=== PATIENT | male | born 1960 | race Caucasian/White ===

== ENCOUNTER → 2018-02-28 | Outpatient (CLI) | payer BC ==
[~2018-02-28] MED LIST: ACET-822 PO; BACT800T5 PO; HYDR-3516 PO; IBUP1TAB7 PO; LISI-515 PO; METR-1 PO
[2018-02-28 08:57] LABS: AUTOMATED NEUTROPHIL # 5.2 TH/MM3 (1.8-7.7); BASOPHIL # 0.1 TH/MM3 (0-0.2); BASOPHIL % 1.2 % (0.0-2.0); EOSINOPHIL # 0.2 TH/MM3 (0-0.4); EOSINOPHIL % 1.7 % (0.0-4.0); HEMATOCRIT 46.8 % (39.0-51.0); HEMOGLOBIN 16.1 GM/DL (13.0-17.0); LYMPH % 39.8 % (9.0-44.0); LYMPHOCYTE # 4.1 TH/MM3 (1.0-4.8); MEAN CELL VOLUME 92.6 FL (80.0-100.0); MEAN CORPUSCULAR HEMOGLOBIN 31.8 PG (27.0-34.0); MEAN CORPUSCULAR HGB CONC 34.4 % (32.0-36.0); MEAN PLATELET VOLUME 9.4 FL (7.0-11.0); MONO % 7.4 % (0.0-8.0); MONOCYTE # 0.8 TH/MM3 (0-0.9); NEUT % 49.9 % (16.0-70.0); PLATELET COUNT 213 TH/MM3 (150-450); RED BLOOD COUNT 5.06 MIL/MM3 (4.50-5.90); RED CELL DISTRIBUTION WIDTH 13.6 % (11.6-17.2); WHITE BLOOD COUNT 10.4 TH/MM3 (4.0-11.0)
[2018-02-28 08:59] LABS: BILIRUBIN, URINE NEG (NEG); BLOOD, URINE NEG (NEG); GLUCOSE,URINE NEG (NEG); KETONE, URINE NEG (NEG); MUCUS URINE FEW /lpf (OCC); NITRITE,URINE NEG (NEG); PH, URINE 5.5 (5.0-8.5); URINE COLOR YELLOW (YELLW/STRAW); URINE LEUKOCYTE ESTERASE NEG (NEG)
--- NOTE | 2018-02-28 09:13 | RADRPT ---
EXAM DATE/TIME: 02/28/2018 08:54 [facility] COMPARISON: CHEST SINGLE AP, October 27, 2016, 5:31. INDICATIONS : Evaluate for pneumonia, pneumothorax or communicable diesease surgery 03/07/18 Sigmoid colectomy, low anterior resection MEDICAL HISTORY : Hypertension. SURGICAL HISTORY : Inguinal hernia repair. ENCOUNTER: Initial ACUITY: 1 day PAIN SCORE: 0/10 LOCATION: Bilateral chest FINDINGS: PA and lateral views of the chest demonstrate the lungs to be symmetrically aerated without evidence of mass, infiltrate or effusion. The cardiomediastinal contours are unremarkable. There are mild deg enerative changes within the thoracic spine. CONCLUSION: 1. No acute cardiopulmonary findings. Gama Benjamin MD on February 28, 2018 at 9:09 Board Certified Radiologist. This report was verified electronically.
[2018-02-28 09:44] LABS: AST (GOT) 14 U/L (15-37); BICARBONATE 29.1 MEQ/L (21.0-32.0); BLOOD UREA NITROGEN 12 MG/DL (7-18); CALCIUM 8.9 MG/DL (8.5-10.1); CHLORIDE 107 MEQ/L (98-107); GLOMERULAR FILTRATION RATE 69 ML/MIN (>89); GLUCOSE,FASTING 85 MG/DL (74-99); SODIUM (NA) 141 MEQ/L (136-145)
[2018-02-28 09:49] LABS: ALKALINE PHOSPHATASE 101 U/L (45-117); ALT (GPT) 27 U/L (12-78); TOTAL BILIRUBIN ADULT 0.3 MG/DL (0.2-1.0)
--- NOTE | 2018-03-01 10:44 | EKG ---
Date Performed: 02/28/2018 Time Performed: 08:15:45 PTAGE: 57 years EKG: Sinus rhythm MODERATE INTRAVENTRICULAR CONDUCTION DELAY MINIMAL VOLTAGE CRITERIA FOR LVH, CONSIDER NORMAL VARIANT BORDERLINE ECG PREVIOUS TRACING : 10/27/[address] segment elevation most consistent with repolariz ation change. Since the prior tracing, there has been no significant serial change. DOCTOR: Charlene Talavera Interpretating Date/Time 03/01/2018 10:43:26
== END ==
LOC: CPRE 07:54
PROVIDERS: ATTEND Colon & Rectal Surgery
DX: Z01.810 Encounter for preprocedural cardiovascular examination (principal); Z01.811 Encounter for preprocedural respiratory examination; Z01.812 Encounter for preprocedural laboratory examination; K57.32 Diverticulitis of large intestine without perforation or abscess without bleeding; R94.31 Abnormal electrocardiogram [ECG] [EKG]
CPT/HCPCS: 36415; 71046; 80053; 81001; 85025; 85610; 85730; 93005

== ENCOUNTER 2018-03-07 11:31 | Inpatient (IN) | payer BC ==
[2018-03-07] VITALS (8 sets, daily range): BP systolic 142–158; BP diastolic 71–82; PULSE 78–88; RESP 18–20; TEMP 98.1–98.7; O2SAT 95–96
[~2018-03-07] VITALS: Ht 180.3 cm; Wt 80.5 kg
[~2018-03-07 11:31] MED LIST changes: -BACT800T5 PO; -HYDR-3516 PO; -IBUP1TAB7 PO; -METR-1 PO
[2018-03-07] MEDS ORDERED: ROCURONIUM INJ 50 MG/5 ML SYRINGE IV PUSH ONE (12:00)
[2018-03-07] MEDS ORDERED: DEXT 5%-NACL 0.9% 1000 ML INJ 1,000 ML IV SCH (12:00)
[2018-03-07] MEDS ORDERED: DEXAMETHASONE SOD PHOS 4 MG/ML VIAL IV ONE (12:00)
[2018-03-07] MEDS ORDERED: ALVIMOPAN 12 MG CAPSULE - On Call PO SCH (12:00)
[2018-03-07] MEDS ORDERED: ONDANSETRON HCL 4 MG/2 ML VIAL IV ONE (12:00)
[2018-03-07] MEDS ORDERED: PROPOFOL 200 MG/20 ML AMP IV ONE (12:00)
[2018-03-07] MEDS ORDERED: ceFAZolin 1,000 MG/NS 100 ML IV SCH ×2 (12:00)
[2018-03-07] MEDS ORDERED: SODIUM CHLORID 0.9% 500 ML IV PRN (12:00)
[2018-03-07] MEDS ORDERED: NORMOSOL R INJ 1,000 ML IV ONE (12:00)
[2018-03-07] MEDS ORDERED: LACTATED RINGER'S 1000 ML IV PRN (12:00)
[2018-03-07] MEDS ORDERED: PHENYLEPH/NS 1000 MCG/10 ML SYR IV ONE (12:00)
[2018-03-07] MEDS ORDERED: KETOROLAC TROMETHAMINE 30 MG/ML (IVP) VIAL IV PUSH ONE (12:00)
[2018-03-07] MEDS ORDERED: POVIDONE IODINE 5% (ANTISEPSIS KIT) 4 APPLICATIONS EACH NARE PRN (12:00)
[2018-03-07] MEDS ORDERED: METRONIDAZOLE 500 MG/100 ML ISONTONIC SOLN IV SCH (12:00)
[2018-03-07] MEDS ORDERED: METOPROLOL TARTRATE 25 MG TAB PO PRN (12:00)
[2018-03-07] MEDS ORDERED: LIDOCAINE HCL 1% PF 5 ML SYRINGE OTHER ONE (12:00)
[2018-03-07] MEDS ORDERED: INSULIN HUMAN REGULAR 1,000 UNITS/10 ML VIAL SQ PRN (12:00)
[2018-03-07] MEDS ORDERED: CHLORHEXIDINE GLUCONATE 2 % 1 PACK (2 CLOTHS) TOPICAL PRN (12:00)
[2018-03-07] MEDS ORDERED: BUPIVACAINE HCL PF 0.5% 30 ML VIAL ONE (13:07)
--- NOTE | 2018-03-07 14:10 | PD.OP ---
Operative Report Date of Surgery: Mar 07, 2018 Preoperative Diagnosis: Sigmoid diverticulitis Postoperative Diagnosis: Same Procedure: Cystoscopy with bilateral ureteral catheter insertion Anesthesia: SRIDHAR Surgeon: Yasmany Small Case Assistant(s): None Resident Surgeon: None Operation and Findings: 57-year-old male with sigmoid diverticulitis. Elected to undergo colon resection by & Dr. Jasso. Request for made for bilateral ureteral catheter insertion. The patient was brought to the operating room and placed in the dorsal lithotomy position. He was prepped and draped in usual sterile fashion and preprocedure antibiotics were administered. General endotracheal tube anesthesia was also administered. 22 Filipino cystoscope was inserted the bladder miranda cystoscopy did not reveal any abnormalities. The left ureteral orifice was identified for majority catheter was inserted in the left ureteral orifice without difficulty. This was repeated on the right side. A 0.35 sensor wire was passed up the right side in order to pass the catheter over the wire. A 60 Filipino Gannon catheter was inserted and the catheters were then secured to the Gannon. The patient tolerated the procedure well. Yasmany Small DO Mar 07, 2018 14:10
[2018-03-07] MEDS ORDERED: SODIUM CHLORIDE 0.9% FLUSH 10 ML FLUSH IV FLUSH PRN (15:30)
[2018-03-07] MEDS ORDERED: ONDANSETRON HCL 4 MG/2 ML VIAL IV PUSH PRN (15:30)
[2018-03-07] MEDS ORDERED: BENZOCAINE 6 MG/MENTHOL 10 MG LOZENGE BUCCAL PRN (15:30)
[2018-03-07] MEDS ORDERED: NALOXONE HCL 0.4 MG/ML AMP IV PUSH PRN (15:30)
[2018-03-07] MEDS ORDERED: ZOLPIDEM TARTRATE 5 MG TAB PO PRN (15:30)
[2018-03-07] MEDS ORDERED: ACETAMINOPHEN/HYDROcodone 325 MG/5 MG TAB PO PRN (15:30)
[2018-03-07] MEDS ORDERED: POTASSIUM CHLOR 20 MEQ PREMIX 100 ML IV PRN (15:30)
[2018-03-07] MEDS ORDERED: POTASSIUM CHLOR 40 MEQ PREMIX 100 ML IV PRN (15:30)
[2018-03-07] MEDS ORDERED: KETOROLAC TROMETHAMINE 30 MG/ML (IVP) VIAL IVP PRN (15:30)
[2018-03-07] MEDS ORDERED: Post-op Orders (for Pharmacy) XX ONE (15:34)
[2018-03-07] MEDS ORDERED: *morphine SULFATE 4 MG/ML PERIprocedure ONLY ONE ×3 (15:35→16:11)
[2018-03-07] MEDS ORDERED: *MEPERIDINE 25 MG INJ VIAL PERIprocedural Use ONLY ONE (15:35)
[2018-03-07] MEDS ORDERED: DO NOT ADM ANY ANTICOAGULANT DRUGS PRN (16:00)
[2018-03-07 16:26] LABS: AUTOMATED NEUTROPHIL # 22.2 TH/MM3 (1.8-7.7); BASOPHIL # 0.1 TH/MM3 (0-0.2); BASOPHIL % 0.6 % (0.0-2.0); EOSINOPHIL % 0.2 % (0.0-4.0); HEMATOCRIT 49.3 % (39.0-51.0); HEMOGLOBIN 16.7 GM/DL (13.0-17.0); LYMPH % 9.7 % (9.0-44.0); LYMPHOCYTE # 2.5 TH/MM3 (1.0-4.8); MEAN CELL VOLUME 91.4 FL (80.0-100.0); MEAN CORPUSCULAR HGB CONC 33.9 % (32.0-36.0); MEAN PLATELET VOLUME 9.5 FL (7.0-11.0); MONO % 2.3 % (0.0-8.0); MONOCYTE # 0.6 TH/MM3 (0-0.9); NEUT % 87.2 % (16.0-70.0); PLATELET COUNT 246 TH/MM3 (150-450); RED BLOOD COUNT 5.39 MIL/MM3 (4.50-5.90); WHITE BLOOD COUNT 25.4 TH/MM3 (4.0-11.0)
[2018-03-07] MEDS: D5-LR + KCL 20 MEQ INJ 1,000 ML IV SCH ×2 (16:34→20:35)
--- NOTE | 2018-03-07 16:41 | MP ---
cc: Ray Palmer MD Daryl Luevano Ricardo DATE OF OPERATION: 03/07/2018 DATE OF PROCEDURE: 03/07/2018 PREOPERATIVE DIAGNOSIS: Diverticulitis. POSTOPERATIVE DIAGNOSIS: Diverticulitis. PROCEDURE PERFORMED: Sigmoid colectomy, low anterior resection. ANESTHESIA: General endotracheal. SURGEON: Ray Palmer MD HITTING COACH: John Monterroso MD ESTIMATED BLOOD LOSS: 100 mL. OPERATING TIME: 1 hour and 10 minutes. OPERATIVE FINDINGS: This patient has had multiple attacks of diverticulitis. He had a sharply angulated sigmoid colon that was stuck in the pelvis posterior to the bladder. At surgery, exploration of the abdominal cavity revealed a mild amount of clear ascites in the abdominal cavity, which was aspirated. He also had a normal liver on palpation as well as a normal gallbladder, stomach, colon, and the small bowel. The sigmoid colon was stuck and inflamed for a short segment posterior to the bladder down in the pelvis. This was easily freed up. There did not appear to be a bladder fistula. Dr. Yasmany Small placed bilateral ureteral catheters for facilitation of identification of the ureters. The right ureteral catheter was removed at the end of the surgery. At surgery, a sigmoid colectomy was done with a colorectal anastomosis using the Ethicon 29 EEA stapling instrument. The splenic flexure was mobilized. The omentum was placed down in the pelvis at termination of the procedure. OPERATIVE TECHNIQUE IN DETAIL: The patient was placed on the table in the supine position. After adequate general endotracheal anesthesia, the legs were placed in the perineal lithotomy position and the abdomen and perineum were prepped and draped in the usual manner. Transverse infraumbilical skin incision was made, carried down through subcutaneous tissue and the rectus muscles and the peritoneal cavity was entered with the above-mentioned findings. Attention was turned to the sigmoid colon; it was mobilized along its peritoneal reflection as was the descending colon, right up to and including the splenic flexure. Transverse colon was partially mobilized and the omentum was partially mobilized from the distal transverse colon. Next, the superior hemorrhoidal vessels were doubly clamped, cut and doubly ligated along with the inferior mesenteric vein and the retrorectal space was entered and the lateral pelvic peritoneum was incised bilaterally. The lateral stalks were mobilized with electrocautery and the retrorectal space was mobilized with electrocautery as well down toward the pelvic floor. Once this was done, to the anterior cul-de-sac just above this area the mesorectum was clamped, cut, and ligated and the rectum was cleared in its upper portion of the rectum. Once this was done, a pursestring stapling device was placed in the rectum and the rectum was divided. A place was chosen for division of the sigmoid colon and the remainder of the mesentery was clamped, cut, and ligated. The proximal pursestring was placed with a 2-0 Prolene suture in a simple running manner and then the anvil of the 29 Ethicon EEA was placed in the proximal bowel and the pursestring was tied. Once this was achieved, Dr. Monterroso went below and placed the EEA instrument transanally, then the trocar was advanced and the distal pursestring was tied and then the instrument was connected, closed and fired, creating the circular anastomosis. Next, Dr. Monterroso did a proctosigmoidoscopy examination insufflating air into the rectum and sigmoid colon with saline solution in the pelvis and no air leaks were identified. The pelvis was irrigated thoroughly with 2-3 liters of saline solution and aspirated dry, and hemostasis was excellent. There was no tension on the anastomosis and the blood supply was excellent. A flat #10 Constantine drain was placed in the retrorectal space to collect any postoperative fluid. Next, the bowels were replaced in the abdominal cavity in an wet pour supervisor manner after hemostasis was obtained with electrocautery and a ligature. The transverse colon was brought over the small bowel and then the omentum was brought down over that and placed in the pelvis as an omental flap. Sponge, needle and instrument counts were reported as correct and then the abdominal cavity was closed in layers using a double-stranded #1 PDS to the posterior rectus sheath and then the muscle layer was irrigated thoroughly with a liter of saline solution and the anterior rectus sheath was closed with a double-stranded #1 PDS as well. The subcutaneous tissue was irrigated thoroughly with a liter of saline solution and then dried. The skin was closed with running 3-0 Vicryl subcuticular suture and a dressing was applied. Sponge, needle and instrument counts were reported as correct. The estimated blood loss was 100 mL. The patient tolerated the procedure well and left the operating room in good condition. Operating time was 1 hour and 10 minutes. MD MANASA Rodriguez , 03:35 PM , 04:41 PM MTDBernardo
[2018-03-07] MEDS: MORPHINE SULFATE 30 MG/30 ML PCA IV SCH (16:51)
[2018-03-07 16:57] LABS: BICARBONATE 21.3 MEQ/L (21.0-32.0); CALCIUM 8.3 MG/DL (8.5-10.1); CREATININE 1.9 MG/DL (0.60-1.30)
[2018-03-07] MEDS ORDERED: LABETALOL HCL 100 MG/20 ML VIAL ONE (17:09)
[2018-03-07] MEDS ORDERED: HYDROmorphone HCL PF 0.5 MG/0.5 ML SYRINGE ONE (17:32)
[2018-03-07] MEDS: METOCLOPRAMIDE HCL 10 MG/2 ML VIAL IVS SCH ×2 (17:47→23:09)
[2018-03-07] MEDS: ceFAZolin 2 GM PREMIX 50 ML IV SCH (20:22)
[2018-03-07] MEDS: FUROSEMIDE 20 MG/2 ML VIAL IV PUSH SCH (20:23)
[2018-03-07] MEDS: SODIUM CHLORIDE 0.9% FLUSH 10 ML FLUSH IV FLUSH SCH (20:23)
[2018-03-07] MEDS: PCA - TOTAL MG MORPHINE DELIVERED PER SHIFT SCH ×2 (22:00→22:30)
[2018-03-07] MEDS: metroNIDAZOLE 500 MG INJ 100 ML IV SCH (23:09)
[2018-03-08] VITALS (12 sets, daily range): BP systolic 114–176; BP diastolic 61–89; PULSE 69–98; RESP 16–21; TEMP 98.3–99.4; O2SAT 92–95
[2018-03-08] MEDS: ceFAZolin 2 GM PREMIX 50 ML IV SCH ×2 (05:13→12:22)
[2018-03-08] MEDS: METOCLOPRAMIDE HCL 10 MG/2 ML VIAL IVS SCH ×4 (05:14→23:13)
[2018-03-08 05:27] LABS: AUTOMATED NEUTROPHIL # 17.4 TH/MM3 (1.8-7.7); BASOPHIL % 0.1 % (0.0-2.0); HEMATOCRIT 46.8 % (39.0-51.0); HEMOGLOBIN 15.7 GM/DL (13.0-17.0); LYMPH % 6.2 % (9.0-44.0); LYMPHOCYTE # 1.3 TH/MM3 (1.0-4.8); MEAN CELL VOLUME 92.7 FL (80.0-100.0); MEAN CORPUSCULAR HEMOGLOBIN 31.1 PG (27.0-34.0); MEAN CORPUSCULAR HGB CONC 33.5 % (32.0-36.0); MEAN PLATELET VOLUME 9.5 FL (7.0-11.0); MONO % 9.2 % (0.0-8.0); MONOCYTE # 1.9 TH/MM3 (0-0.9); NEUT % 84.5 % (16.0-70.0); PLATELET COUNT 204 TH/MM3 (150-450); RED BLOOD COUNT 5.05 MIL/MM3 (4.50-5.90); RED CELL DISTRIBUTION WIDTH 13.9 % (11.6-17.2); WHITE BLOOD COUNT 20.6 TH/MM3 (4.0-11.0)
[2018-03-08] MEDS: metroNIDAZOLE 500 MG INJ 100 ML IV SCH ×2 (05:59→13:10)
[2018-03-08] MEDS: PCA - TOTAL MG MORPHINE DELIVERED PER SHIFT SCH ×3 (06:00→22:10)
[2018-03-08 06:11] LABS: BICARBONATE 27.5 MEQ/L (21.0-32.0); CALCIUM 8.2 MG/DL (8.5-10.1); CREATININE 1.35 MG/DL (0.60-1.30)
[2018-03-08] MEDS: SODIUM CHLORIDE 0.9% FLUSH 10 ML FLUSH IV FLUSH SCH ×2 (08:53→21:00)
[2018-03-08] MEDS: FUROSEMIDE 20 MG/2 ML VIAL IV PUSH SCH ×2 (08:53→21:01)
[2018-03-08] MEDS: PANTOPRAZOLE SODIUM 40 MG VIAL IVP SCH (08:54)
[2018-03-08] MEDS: ALVIMOPAN 12 MG CAPSULE PO SCH ×2 (08:54→21:00)
[2018-03-08] MEDS: LISINOPRIL 20 MG TAB PO SCH (08:54)
[2018-03-08] MEDS ORDERED: ALVIMOPAN 12 MG CAPSULE - Post-op dosing PO SCH (09:00)
[2018-03-08] MEDS: D5-LR + KCL 20 MEQ INJ 1,000 ML IV SCH ×2 (11:20→16:43)
[2018-03-08] MEDS: HEPARIN SODIUM - SQ 10,000 UNITS/ML VIAL SQ SCH ×2 (15:57→23:13)
[2018-03-08] MEDS: MORPHINE SULFATE 30 MG/30 ML PCA IV SCH (17:26)
[2018-03-08] MEDS: ENALAPRILAT 1.25 MG/ML VIAL IV PUSH PRN (19:21)
[2018-03-08] MEDS: DEXTROSE 5%-LACTATED RING INJ 1,000 ML IV SCH (21:01)
--- NOTE | 2018-03-08 22:49 | HHI.PR ---
Subjective Remarks No N or V. No BMs Objective Vital Signs Date Time Temp Pulse Resp B/P (MAP) Pulse Ox O2 Delivery O2 Flow Rate FiO2 03/08/18 17:32 16 03/08/18 17:26 16 03/08/18 15:00 99.4 77 16 155/77 (103) 94 03/08/18 13:11 16 03/08/18 11:47 99.0 79 16 114/61 (78) 93 03/08/18 08:00 70 03/08/18 08:00 98.3 83 16 133/74 (93) 93 03/08/18 06:03 70 03/08/18 06:00 19 03/08/18 05:04 75 03/08/18 04:00 69 03/08/18 03:52 71 03/08/18 03:52 98.4 82 20 152/76 (101) 95 03/08/18 02:00 75 03/08/18 01:03 84 03/08/18 00:28 88 03/07/18 23:00 88 03/07/18 23:00 98.2 84 19 143/72 (95) 96 I/O 03/07/18 03/07/18 03/07/18 03/08/18 03/08/18 03/08/18 07:00 15:00 23:00 07:00 15:00 23:00 Intake Total 4250 ml 490 ml 1740 ml Output Total 445 ml 1560 ml 2050 ml Balance 3805 ml -1070 ml -310 ml Intake Oral 240 ml 240 ml IV Total 4250 ml 250 ml 1500 ml Output Urine Total 275 ml 1450 ml 1950 ml Drainage Total 70 ml 110 ml 100 ml Estimated Blood Loss 100 ml # Bowel Movements 0 Result Diagram: 03/08/182 03/08/18421 Objective Remarks VS-S Abd: Soft,flat I&Os and Labs:OK Assessment and Plan Assessment and Plan Stable POD#1. Transfer to floor Ray Palmer MD Mar 08, 2018 22:48
[2018-03-09] VITALS (8 sets, daily range): BP systolic 125–174; BP diastolic 73–90; PULSE 72–93; RESP 16–22; TEMP 97.7–98.7; O2SAT 94–96
[2018-03-09 04:32] LABS: BASOPHIL # 0.1 TH/MM3 (0-0.2); BASOPHIL % 0.6 % (0.0-2.0); EOSINOPHIL % 0.1 % (0.0-4.0); HEMATOCRIT 42.2 % (39.0-51.0); HEMOGLOBIN 14.3 GM/DL (13.0-17.0); LYMPH % 10.8 % (9.0-44.0); LYMPHOCYTE # 1.9 TH/MM3 (1.0-4.8); MEAN CELL VOLUME 91.2 FL (80.0-100.0); MEAN CORPUSCULAR HGB CONC 33.9 % (32.0-36.0); MEAN PLATELET VOLUME 9.6 FL (7.0-11.0); MONO % 8.6 % (0.0-8.0); MONOCYTE # 1.5 TH/MM3 (0-0.9); NEUT % 79.9 % (16.0-70.0); PLATELET COUNT 182 TH/MM3 (150-450); RED BLOOD COUNT 4.63 MIL/MM3 (4.50-5.90); RED CELL DISTRIBUTION WIDTH 13.8 % (11.6-17.2); WHITE BLOOD COUNT 17.5 TH/MM3 (4.0-11.0)
[2018-03-09 04:55] LABS: BICARBONATE 29.7 MEQ/L (21.0-32.0); CALCIUM 8.6 MG/DL (8.5-10.1); CREATININE 1.03 MG/DL (0.60-1.30)
[2018-03-09] MEDS: METOCLOPRAMIDE HCL 10 MG/2 ML VIAL IVS SCH ×4 (05:42→23:44)
[2018-03-09] MEDS: PCA - TOTAL MG MORPHINE DELIVERED PER SHIFT SCH ×3 (06:00→22:00)
[2018-03-09] MEDS: DEXTROSE 5%-LACTATED RING INJ 1,000 ML IV SCH ×2 (07:47→17:33)
[2018-03-09] MEDS: HEPARIN SODIUM - SQ 10,000 UNITS/ML VIAL SQ SCH (07:48)
[2018-03-09] MEDS: ACETAMINOPHEN/HYDROcodone 325 MG/5 MG TAB PO PRN ×2 (07:48→19:46)
[2018-03-09] MEDS: ENALAPRILAT 1.25 MG/ML VIAL IV PUSH PRN (07:48)
[2018-03-09] MEDS: LISINOPRIL 20 MG TAB PO SCH (09:00)
[2018-03-09] MEDS: FUROSEMIDE 20 MG/2 ML VIAL IV PUSH SCH ×2 (09:07→19:45)
[2018-03-09] MEDS: ALVIMOPAN 12 MG CAPSULE PO SCH ×2 (09:07→23:44)
[2018-03-09] MEDS: SODIUM CHLORIDE 0.9% FLUSH 10 ML FLUSH IV FLUSH SCH ×2 (09:08→23:45)
[2018-03-09] MEDS: PANTOPRAZOLE SODIUM 40 MG VIAL IVP SCH (09:08)
--- NOTE | 2018-03-09 12:38 | HHI.PR ---
Subjective Remarks No N or V. Small BMs. Objective Vital Signs Date Time Temp Pulse Resp B/P (MAP) Pulse Ox O2 Delivery O2 Flow Rate FiO2 03/09/18 11:00 98.1 93 17 144/80 (101) 95 03/09/18 09:08 19 03/09/18 07:00 98.0 77 19 174/88 (116) 95 03/09/18 06:00 19 03/09/18 03:10 98.7 72 20 162/88 (112) 94 03/08/18 23:15 98.4 86 20 158/84 (108) 92 03/08/18 22:10 20 03/08/18 19:10 98.6 98 21 176/89 (118) 93 03/08/18 17:32 16 03/08/18 17:26 16 03/08/18 15:00 99.4 77 16 155/77 (103) 94 03/08/18 13:11 16 I/O 03/08/18 03/08/18 03/08/18 03/09/18 03/09/18 03/09/18 07:00 15:00 23:00 07:00 15:00 23:00 Intake Total 490 ml 1740 ml 240 ml Output Total 1560 ml 2050 ml 2105 ml 750 ml Balance -1070 ml -310 ml -1865 ml -750 ml Intake Oral 240 ml 240 ml 240 ml IV Total 250 ml 1500 ml Output Urine Total 1450 ml 1950 ml 2050 ml 700 ml Drainage Total 110 ml 100 ml 55 ml 50 ml # Bowel Movements 0 0 Result Diagram: 03/09/18 0304 03/09/18 0304 Objective Remarks VS-S Abd: Soft,flat,dressing removed. Bleeding around drain site I&Os and Labs:OK Assessment and Plan Assessment and Plan Stable POD#2 Transfer to floor. D/C SQ Heparin.Redress drain Ray Palmer MD Mar 09, 2018 12:38
--- NOTE | 2018-03-09 16:52 | EKG ---
Date Performed: 03/08/2018 Time Performed: 17:43:32 PTAGE: 57 years EKG: Sinus rhythm Poor R wave progression - probable normal variant Since the previous tracing, no significant change noted Borderline ECG PREVIOUS TRACING : 02/28/2018 08.15 DOCTOR: Nuris Miranda Interpretating Date/Time 03/09/2018 16:50:43
[2018-03-10 04:50] VITALS: BP 141/79; PULSE 87; RESP 17; TEMP 98.1; O2SAT 94
[2018-03-10] MEDS: PCA - TOTAL MG MORPHINE DELIVERED PER SHIFT SCH ×3 (06:00→20:28)
[2018-03-10] MEDS: DEXTROSE 5%-LACTATED RING INJ 1,000 ML IV SCH (06:53)
[2018-03-10] MEDS: METOCLOPRAMIDE HCL 10 MG/2 ML VIAL IVS SCH ×3 (07:21→17:23)
[2018-03-10 08:00] VITALS: BP 137/71; PULSE 84; RESP 18; TEMP 98.2; O2SAT 94
[2018-03-10] MEDS: FUROSEMIDE 20 MG/2 ML VIAL IV PUSH SCH (09:19)
[2018-03-10] MEDS: ALVIMOPAN 12 MG CAPSULE PO SCH ×2 (09:19→20:28)
[2018-03-10] MEDS: LISINOPRIL 20 MG TAB PO SCH (09:19)
[2018-03-10] MEDS: PANTOPRAZOLE SODIUM 40 MG VIAL IVP SCH (09:19)
[2018-03-10] MEDS: SODIUM CHLORIDE 0.9% FLUSH 10 ML FLUSH IV FLUSH SCH ×2 (09:20→20:29)
--- NOTE | 2018-03-10 10:29 | HHI.PR ---
Subjective Remarks No N or V. Small loose BMs Objective Vital Signs Date Time Temp Pulse Resp B/P (MAP) Pulse Ox O2 Delivery O2 Flow Rate FiO2 03/10/18 08:00 98.2 84 18 137/71 (93) 94 03/10/18 04:50 98.1 87 17 141/79 (99) 94 03/09/18 23:45 98.3 92 17 125/73 (90) 95 03/09/18 20:00 98.2 92 16 167/85 (112) 94 03/09/18 14:00 16 03/09/18 13:30 84 16 146/84 (104) 96 03/09/18 12:00 97.7 89 16 153/90 (111) 96 03/09/18 11:00 98.1 93 17 144/80 (101) 95 I/O 03/09/18 03/09/18 03/09/18 03/10/18 03/10/18 03/10/18 07:00 15:00 23:00 07:00 15:00 23:00 Intake Total 240 ml 840 ml 720 ml Output Total 2105 ml 950 ml 250 ml 110 ml 60 ml Balance -1865 ml -950 ml 590 ml 610 ml -60 ml Intake Oral 240 ml 840 ml 720 ml Output Urine Total 2050 ml 900 ml 250 ml Drainage Total 55 ml 50 ml 110 ml 60 ml # Voids 1 1 3 # Bowel Movements 0 0 Result Diagram: 03/09/18 0304 03/09/18 0304 Objective Remarks VS-S Abd: Soft,flat,dressing removed. I&Os and Labs:OK Assessment and Plan Assessment and Plan Stable POD#3 Transfer to floor. Redress drain Ray Palmer MD Mar 10, 2018 10:29
[2018-03-10 12:00] VITALS: BP 129/80; PULSE 97; RESP 18; TEMP 98.1; O2SAT 97
[2018-03-10 16:00] VITALS: BP 127/71; PULSE 94; RESP 18; TEMP 99; O2SAT 98
[2018-03-10] MEDS: ACETAMINOPHEN/HYDROcodone 325 MG/5 MG TAB PO PRN (20:28)
[2018-03-10 20:45] VITALS: BP 107/69; PULSE 79; RESP 16; TEMP 97.7; O2SAT 97
[2018-03-10 23:15] VITALS: BP 124/68; PULSE 94; RESP 17; TEMP 97.8; O2SAT 97
[2018-03-11] MEDS: METOCLOPRAMIDE HCL 10 MG/2 ML VIAL IVS SCH ×2 (00:39→06:00)
[2018-03-11] MEDS: DEXTROSE 5%-LACTATED RING INJ 1,000 ML IV SCH (01:05)
[2018-03-11 04:00] VITALS: BP 128/62; PULSE 92; RESP 17; TEMP 97.6; O2SAT 96
[2018-03-11] MEDS: PCA - TOTAL MG MORPHINE DELIVERED PER SHIFT SCH (04:45)
[2018-03-11 08:00] VITALS: BP 114/61; PULSE 86; RESP 17; TEMP 98.6; O2SAT 94
[2018-03-11] MEDS: LISINOPRIL 20 MG TAB PO SCH (08:47)
[2018-03-11] MEDS: ALVIMOPAN 12 MG CAPSULE PO SCH (08:47)
[2018-03-11] MEDS: SODIUM CHLORIDE 0.9% FLUSH 10 ML FLUSH IV FLUSH SCH (08:56)
[2018-03-11] MEDS ORDERED: PANTOPRAZOLE SOD 40 MG DELAYED RELEASE TAB PO SCH (09:00)
--- NOTE | 2018-03-11 09:56 | HHI.DCPOC ---
Discharge Care Plan Diagnosis: (1) Diverticulitis large intestine (2) S/P colon resection Your Health Problems Are: Incision/Drains Appetite Changes Irregular Bowel Function Exercise Tolerance Goals to Promote Your Health * To prevent worsening of your condition and complications * To maintain your health at the optimal level Directions to Meet Your Goals Take your medications as prescribed Follow your dietary instruction Follow activity as directed Keep your appointments as scheduled Take your immunizations and boosters as scheduled If your symptoms worsen call your PCP, if no PCP go to Urgent Care Center or Emergency Room Smoking is Dangerous to Your Health. Avoid second hand smoke Call the 24-hour hour crisis hotline for domestic abuse at Ray Palmer MD Mar 11, 2018 09:56
[2018-03-11] MEDS ORDERED: HYDR-3516 PO (10:56)
[2018-03-11 11:24] LABS: BACTERIA, URINE OCC /hpf; BILIRUBIN, URINE NEG (NEG); BLOOD, URINE LARGE (NEG); GLUCOSE,URINE NEG (NEG); KETONE, URINE NEG (NEG); NITRITE,URINE NEG (NEG); PH, URINE 5.5 (5.0-8.5); URINE COLOR YELLOW (YELLW/STRAW); URINE LEUKOCYTE ESTERASE MOD (NEG)
== END 2018-03-11 11:30 | disposition home or self-care (01) | DRG 331 ==
LOC: HSDI 11:31 → EDSTATUS 13:30 → HCPC 17:37 → N06B 03-09 13:25
PROVIDERS: ADMIT Colon & Rectal Surgery; ATTEND Colon & Rectal Surgery
PROC: 0DTN0ZZ Resection of Sigmoid Colon, Open Approach (ICD-10-PCS; principal; 2018-03-07 13:22)
PROC: 0T9880Z Drainage of Bilateral Ureters with Drainage Device, Via Natural or Artificial Opening Endoscopic (ICD-10-PCS; 2018-03-07 13:22)
DX: K57.32 Diverticulitis of large intestine without perforation or abscess without bleeding (principal); I10 Essential (primary) hypertension; F17.210 Nicotine dependence, cigarettes, uncomplicated
CPT/HCPCS: 80048; 81001; 85025; 86850; 86900; 86901; 87086; 88307; 93005; 94150; C1769; C9113; J0690; J1100; J1170; J1644; J1885; J1940; J2175; J2270; J2370; J2405; J2765; J3480; J7120; J7121

== ENCOUNTER 2018-03-22 10:11 | Emergency (ER) | payer BC ==
[~2018-03-22] VITALS: Ht 180.3 cm; Wt 76.0 kg
[~2018-03-22 10:11] MED LIST changes: +HYDR-3516 PO
[2018-03-22 10:20] VITALS: BP 134/64; PULSE 77; RESP 18; TEMP 98.5; O2SAT 98
[2018-03-22] MEDS ORDERED: SODIUM CHLORIDE 0.9% FLUSH 10 ML FLUSH IVF PRN (11:30)
[2018-03-22] MEDS ORDERED: ONDANSETRON HCL 4 MG/2 ML VIAL IVP ONE (11:30)
[2018-03-22] MEDS ORDERED: SODIUM CHLORID 0.9% 500 ML INJ 500 ML IV ONE (11:30)
[2018-03-22] MEDS ORDERED: MECLIZINE HCL 25 MG TAB PO ONE (11:30)
--- NOTE | 2018-03-22 11:35 | PD ---
HPI Chief Complaint: Dizziness Time Seen by Provider: 11:10 Travel History International Travel<30 days: No Contact w/Intl Traveler<30days: No Traveled to known affect area: No History of Present Illness HPI Patient is a 57 year old male who comes in complaining of dizziness. He says it started today and seems to get worse with any movement of his head. He describes it as a "fuzziness," He denies any headache or nausea. He says he has some blurriness of his vision when the episodes occur. He had a colon resection performed [address] Palmer. He denies any increased abdominal pain. He says he has been eating and drinking well, though he did not eat this morning. He says he is moving his bowels. He denies fever or chills. He says he has had issues with his sinuses over the past month, but says he has never had this feeling. He says he felt like he would pass out, that is why he came in. He never had any chest pain or shortness of breath. Severity is mild to moderate. PFSH Past Medical History Asthma: No Blood Disorders: No Heart Rhythm Problems: No Cancer: Yes (Melanoma left ear) Cardiovascular Problems: Yes (HTN) Chest Pain: No Congestive Heart Failure: No COPD: No Diabetes: No Diminished Hearing: No Diverticulitis: Yes Endocrine: No Gastrointestinal Disorders: Yes (ACID REFLEX) GERD: Yes Genitourinary: No Hepatitis: No Hypertension: Yes Immune Disorder: No Musculoskeletal: Yes (Chronic pain syndrome, neck/back issues ) Neurologic: No (2 BULGING DISKS IN NECK, LEFT HAND NUMBNESS OCCASIONALLY) Psychiatric: No Reproductive: No Respiratory: No Sleep Apnea: No Thyroid Disease: No Tetanus Vaccination: < 5 Years Influenza Vaccination: No ?: Not Past Surgical History Abdominal Surgery: Yes (Lt. ing. hernia repair, colectomy ) Joint Replacement: No Tonsillectomy: Yes Other Surgery: Yes (MULTIPLE SURGERIES TO SINUSES AT AGE 7) Social History Alcohol Use: No (States quit) Tobacco Use: No (States quit) Substance Use: No Allergies-Medications (Allergen,Severity, Reaction): Coded Allergies: levofloxacin (Verified Allergy, Unknown, EXTREME SWELLING OF ALL EXTREMITIES, HIVES, 03/22/18) Reported Meds & Prescriptions Reported Meds & Active Scripts Active Reported Lisinopril 20 Mg Tab 20 Mg PO DAILY Review of Systems Except as stated in HPI: all other systems reviewed are Neg General / Constitutional: No: Fever, Chills Eyes: Positive: Blurred Vision HENT: Positive: Vertigo, Lightheadedness Cardiovascular: No: Chest Pain or Discomfort Respiratory: No: Shortness of Breath Gastrointestinal: No: Nausea, Vomiting Musculoskeletal: No: Myalgias Skin: No Rash, No Change in Pigmentation Neurologic: Positive: Dizziness, No: Weakness Physical Exam Narrative GENERAL: Awake and alert, in no acute distress. SKIN: Focused skin assessment warm/dry. HEAD: Atraumatic. Normocephalic. EYES: Pupils equal and round. No scleral icterus. EOMI. ENT: Mucous membranes pink and moist. NECK: Trachea midline. No JVD. CARDIOVASCULAR: Regular rate and rhythm. No murmur appreciated. RESPIRATORY: No accessory muscle use. Clear to auscultation. Breath sounds equal bilaterally. GASTROINTESTINAL: Abdomen soft, non-tender, nondistended. MUSCULOSKELETAL: No obvious deformities. No clubbing. No cyanosis. No edema. NEUROLOGICAL: Awake and alert. No obvious cranial nerve deficits. Motor grossly within normal limits. Normal speech. Normal cerebellar function testing. PSYCHIATRIC: Appropriate mood and affect; insight and judgment normal. Data Data Last Documented VS Vital Signs Date Time Temp Pulse Resp B/P (MAP) Pulse Ox O2 Delivery O2 Flow Rate FiO2 03/22/18 12:15 65 14 114/58 (76) 97 Room Air 03/22/18 10:20 98.5 Orders Orders Electrocardiogram (03/22/18 11:19) Complete Blood Count With Diff (03/22/18 11:19) Comprehensive Metabolic Panel (03/22/18 11:19) Troponin I (03/22/18 11:19) Act Partial Throm Time (Ptt) (03/22/18 11:19) Prothrombin Time / Inr (Pt) (03/22/18 11:19) Urinalysis - C+S If Indicated (03/22/18 11:19) Chest, Single Ap (03/22/18 11:19) Ct Brain W/O Iv Contrast(Rout) (03/22/18 11:19) Ecg Monitoring (03/22/18 11:19) Iv Access Insert/Monitor (03/22/18 11:19) Oximetry (03/22/18 11:19) Meclizine (Antivert) (03/22/18 11:30) Ondansetron Inj (Zofran Inj) (03/22/18 11:30) Sodium Chloride 0.9% Flush (Ns Flush) (03/22/18 11:30) Sodium Chlorid 0.9% 500 Ml Inj (Ns 500 M (03/22/18 11:30) Ct Abd/Pel W Iv Contrast(Rout) (03/22/18 ) Oral Contrast - Adult (03/22/18 12:07) Diatrizoate Liq ( Gastroview Liq) (03/22/18 12:07) Iohexol 350 Inj (Omnipaque 350 Inj) (03/22/18 13:18) Metoclopramide (Reglan) (03/22/18 13:45) Labs Laboratory Tests Test 03/22/18 11:30 White Blood Count 15.1 TH/MM3 Red Blood Count 4.44 MIL/MM3 Hemoglobin 13.6 GM/DL Hematocrit 39.8 % Mean Corpuscular Volume 89.6 FL Mean Corpuscular Hemoglobin 30.5 PG Mean Corpuscular Hemoglobin Concent 34.0 % Red Cell Distribution Width 12.8 % Platelet Count 460 TH/MM3 Mean Platelet Volume 7.7 FL Neutrophils (%) (Auto) 76.3 % Lymphocytes (%) (Auto) 16.0 % Monocytes (%) (Auto) 3.3 % Eosinophils (%) (Auto) 3.2 % Basophils (%) (Auto) 1.2 % Neutrophils # (Auto) 11.4 TH/MM3 Lymphocytes # (Auto) 2.4 TH/MM3 Monocytes # (Auto) 0.5 TH/MM3 Eosinophils # (Auto) 0.5 TH/MM3 Basophils # (Auto) 0.2 TH/MM3 CBC Comment DIFF FINAL Differential Comment Prothrombin Time 9.8 SEC Prothromb Time International Ratio 1.0 RATIO Activated Partial Thromboplast Time 25.0 SEC Urine Collection Type CLEAN CATCH Urine Color YELLOW Urine Turbidity CLEAR Urine pH 5.0 Urine Specific [place] LESS/EQUAL 1.005 Urine Protein NEG mg/dL Urine Glucose (UA) NEG mg/dL Urine Ketones NEG mg/dL Urine Occult Blood NEG Urine Nitrite NEG Urine Bilirubin NEG Urine Urobilinogen 0.2 MG/DL Urine Leukocyte Esterase NEG Urine RBC 0-3 /hpf Urine Squamous Epithelial Cells 0-5 /hpf Microscopic Urinalysis Comment CULT NOT INDICATED Urine Collection Time 1130 Blood Urea Nitrogen 15 MG/DL Creatinine 0.91 MG/DL Random Glucose 101 MG/DL Total Protein 7.1 GM/DL Albumin 3.6 GM/DL Calcium Level 9.0 MG/DL Alkaline Phosphatase 142 U/L Aspartate Amino Transf (AST/SGOT) 23 U/L Alanine Aminotransferase (ALT/SGPT) 47 U/L Total Bilirubin 0.3 MG/DL Sodium Level 136 MEQ/L Potassium Level 4.3 MEQ/L Chloride Level 105 MEQ/L Carbon Dioxide Level 26.2 MEQ/L Anion Gap 5 MEQ/L Estimat Glomerular Filtration Rate 86 ML/MIN Troponin I LESS THAN 0.02 NG/ML MDM Medical Decision Making Medical Screen Exam Complete: Yes Emergency Medical Condition: Yes Medical Record Reviewed: Yes Interpretation(s) ECG shoes NSR at a rate of 64, no ST elevation or depression, normal intervals. Differential Diagnosis vertigo vs dehydration vs electrolyte abnormalities Narrative Course Patient is a 57 year old male who comes in complaining of dizziness. Exam shows no acute abnormalities, no neurologic abnormalities. Surgical scar to the abdomen is healing well. IV established, labs sent. Labs show an elevated WBC count of 15.5, this is improving from his previous admission. Given IVF and Meclizine and Zofran. He reports improvement of his symptoms. CT head performed, CT abdomen pelvis performed (per advised of Dr. Palmer). Last [address] 03/22/18 1119 Signed Impressions: Service Date/Time: Thursday, March 22, 2018 13:02 - CONCLUSION: Normal examination. Terrance Cortez MD Chest X-Ray 03/22/18 1119 Signed Impressions: Service Date/Time: Thursday, March 22, 2018 11:42 - CONCLUSION: Normal examination. Terrance Cortez MD Abdomen/Pelvis CT 03/22/18 0000 Signed Impressions: Service Date/Time: Thursday, March 22, 2018 13:07 - CONCLUSION: Rectosigmoid junction with suture. There is some soft tissue fullness to the right of midline along the perirectal fat of uncertain etiology or age. No evidence of obstruction.. MD Dr. Estela Mcdaniel reviewed the CT of the abdomen/pelvis and does not see any cause for concern. He is comfortable with discharge at this time and follow up in his office. Patient discharged with prescription for Meclizine. Advised to follow up with his doctors. Advised to return any time for any worsening symptoms. Diagnosis Primary Impression: Dizziness Patient Instructions: Dizziness (ED), General Instructions Additional Instructions: Increase her fluid intake. Take meclizine as needed for dizziness. Follow-up with your doctors. Return to the ED as needed for any worsening symptoms. Scripts Meclizine (Meclizine) 25 Mg Tab 25 MG PO TID Y for VERTIGO, #20 TAB 0 Refills Prov: Edna Hayward MD 03/22/18 Disposition: 01 DISCHARGE HOME Condition: Stable Edna Hayward MD Mar 22, 2018 11:35
[2018-03-22 11:38] LABS: AUTOMATED NEUTROPHIL # 11.4 TH/MM3 (1.8-7.7); BASOPHIL # 0.2 TH/MM3 (0-0.2); BASOPHIL % 1.2 % (0.0-2.0); EOSINOPHIL # 0.5 TH/MM3 (0-0.4); EOSINOPHIL % 3.2 % (0.0-4.0); HEMATOCRIT 39.8 % (39.0-51.0); HEMOGLOBIN 13.6 GM/DL (13.0-17.0); LYMPHOCYTE # 2.4 TH/MM3 (1.0-4.8); MEAN CELL VOLUME 89.6 FL (80.0-100.0); MEAN CORPUSCULAR HEMOGLOBIN 30.5 PG (27.0-34.0); MEAN PLATELET VOLUME 7.7 FL (7.0-11.0); MONO % 3.3 % (0.0-8.0); MONOCYTE # 0.5 TH/MM3 (0-0.9); NEUT % 76.3 % (16.0-70.0); PLATELET COUNT 460 TH/MM3 (150-450); RED BLOOD COUNT 4.44 MIL/MM3 (4.50-5.90); RED CELL DISTRIBUTION WIDTH 12.8 % (11.6-17.2); WHITE BLOOD COUNT 15.1 TH/MM3 (4.0-11.0)
[2018-03-22 11:39] LABS: BILIRUBIN, URINE NEG (NEG); BLOOD, URINE NEG (NEG); GLUCOSE,URINE NEG (NEG); KETONE, URINE NEG (NEG); NITRITE,URINE NEG (NEG); URINE COLOR YELLOW (YELLW/STRAW); URINE LEUKOCYTE ESTERASE NEG (NEG)
[2018-03-22 11:40] VITALS: O2SAT 96
[2018-03-22 11:50] LABS: CHLORIDE 105 MEQ/L (98-107); SODIUM (NA) 136 MEQ/L (136-145)
[2018-03-22 11:55] LABS: ALBUMIN 3.6 GM/DL (3.4-5.0); BICARBONATE 26.2 MEQ/L (21.0-32.0); BLOOD UREA NITROGEN 15 MG/DL (7-18); GLUCOSE,RANDOM 101 MG/DL (74-106)
[2018-03-22 11:58] LABS: ALT (GPT) 47 U/L (12-78); AST (GOT) 23 U/L (15-37); CREATININE 0.91 MG/DL (0.60-1.30); GLOMERULAR FILTRATION RATE 86 ML/MIN (>89)
[2018-03-22 11:59] LABS: TOTAL BILIRUBIN ADULT 0.3 MG/DL (0.2-1.0); TOTAL PROTEIN 7.1 GM/DL (6.4-8.2)
[2018-03-22 12:01] LABS: ALKALINE PHOSPHATASE 142 U/L (45-117)
[2018-03-22 12:03] LABS: TROPONIN I LESS THAN 0.02 NG/ML (0.02-0.05)
[2018-03-22 12:04] LABS: RBC, URINE 0-3 /hpf (0-3); SQUAMOUS EPITHELIAL CELL URINE 0-5 /hpf (0-5)
[2018-03-22] MEDS ORDERED: DIATRIZOATE MEGLUM/DIATRIZOATE SOD 9 ML CUP ONE (12:07)
[2018-03-22 12:12] LABS: PROTHROMBIN TIME - PATIENT 9.8 SEC (9.8-11.6)
[2018-03-22 12:15] VITALS: BP 114/58; PULSE 65; RESP 14; O2SAT 97
--- NOTE | 2018-03-22 12:16 | RADRPT ---
EXAM DATE/TIME: 03/22/2018 11:42 [facility] COMPARISON: CHEST SINGLE AP, October 27, 2016, 5:31. INDICATIONS : Chest palpatations MEDICAL HISTORY : Hypertension. SURGICAL HISTORY : Inguinal hernia repair ENCOUNTER: Initial ACUITY: 1 day PAIN SCORE: 1/10 LOCATION: Bilateral chest FINDINGS: A single view of the chest demonstrates the lungs to be symmetrically aerated without evidence of mas s, infiltrate or effusion. The cardiomediastinal contours are unremarkable. Osseous structures are intact. CONCLUSION: Normal examination. Terrance Cortez MD on March 22, 2018 at 12:13 Board Certified Radiologist. This report was verified electronically.
[2018-03-22] MEDS ORDERED: IOHEXOL 350 MG/ML 10 ML VIAL (for RAD DIAG) IVCONTRAST ONE (13:18)
--- NOTE | 2018-03-22 13:27 | RADRPT ---
EXAM DATE/TIME: 03/22/2018 13:02 [facility] COMPARISON: CT BRAIN W/O CONTRAST, June 02, 2013, 13:20. INDICATIONS : Dizziness. RADIATION DOSE: 58.47 CTDIvol (mGy) MEDICAL HISTORY : Gastroesophageal reflux disease. Diverticulosis. Diverticulitis.Hypertension. SURGICAL HISTORY : Inguinal hernia repair. Colon resection. ENCOUNTER: Initial ACUITY: 2 days PAIN SCALE: 0/10 LOCATION: cranial TECHNIQUE: Multiple contiguous axial images were obtained of the head. Using automated exposure control and adj ustment of the mA and/or kV according to patient size, radiation dose was kept as low as reasonably a chievable to obtain optimal diagnostic quality images. DICOM format image data is available electro nically for review and comparison. FINDINGS: CEREBRUM: The ventricles are normal for age. No evidence of midline shift, mass lesion, hemorrhage or acute in farction. No extra-axial fluid collections are seen. POSTERIOR FOSSA: The cerebellum and brainstem are intact. The 4th ventricle is midline. The cerebellopontine angle i s unremarkable. EXTRACRANIAL: The visualized portion of the orbits is intact. SKULL: The calvaria is intact. No evidence of skull fracture. CONCLUSION: Normal examination. Terrance Cortez MD on March 22, 2018 at 13:24 Board Certified Radiologist. This report was verified electronically.
--- NOTE | 2018-03-22 13:30 | RADRPT ---
EXAM DATE/TIME: 03/22/2018 13:07 [place] COMPARISON: CT ABDOMEN & PELVIS W CONTRAST, October 27, 2016, 5:48. INDICATIONS : Abdominal pain. Colon resection 2 weeks ago. IV CONTRAST: 85 cc Omnipaque 350 (iohexol) IV ORAL CONTRAST: Prescribed oral contrast ingested. RADIATION DOSE: 8.73 CTDIvol (mGy) MEDICAL HISTORY : Gastroesophageal reflux disease. Diverticulitis. Diverticulosis.Hypertension. SURGICAL HISTORY : Inguinal hernia repair. Colon resection. ENCOUNTER: Initial ACUITY: 1 day PAIN SCALE: 2/10 LOCATION: Bilateral lower quadrant TECHNIQUE: Volumetric scanning of the abdomen and pelvis was performed. Using automated exposure control and ad justment of the mA and/or kV according to patient size, radiation dose was kept as low as reasonably achievable to obtain optimal diagnostic quality images. DICOM format image data is available electro nically for review and comparison. FINDINGS: LOWER LUNGS: The visualized lower lungs are clear. LIVER: Homogeneous density without lesion. There is no dilation of the biliary tree. No calcified gallston es. SPLEEN: Normal size without lesion. PANCREAS: Within normal limits. KIDNEYS: Normal in size and shape. There is no mass, stone or hydronephrosis. ADRENAL GLANDS: Within normal limits. VASCULAR: There is no aortic aneurysm. BOWEL/MESENTERY: There is a visualized suture in the rectosigmoid junction. The right side in the perirectal fat there is a partially concentric area of soft tissue measuring 1-2 cm across. It is age-indeterminate. ABDOMINAL WALL: Mild soft tissue edema in the anterior abdominal wall RETROPERITONEUM: There is no lymphadenopathy. BLADDER: No wall thickening or mass. REPRODUCTIVE: Within normal limits. INGUINAL: There is no lymphadenopathy or hernia. MUSCULOSKELETAL: Within normal limits for patient age. CONCLUSION: Rectosigmoid junction with suture. There is some soft tissue fullness to the right of midline along t he perirectal fat of uncertain etiology or age. No evidence of obstruction.. Terrance Cortez MD on March 22, 2018 at 13:25 Board Certified Radiologist. This report was verified electronically.
[2018-03-22] MEDS ORDERED: METOCLOPRAMIDE HCL 10 MG TAB PO ONE (13:45)
[2018-03-22] MEDS ORDERED: MECL-62 PO (13:57)
[2018-03-22 14:00] VITALS: BP 116/71; PULSE 83; RESP 16; O2SAT 99
--- NOTE | 2018-03-22 23:47 | EKG ---
Date Performed: 03/22/2018 Time Performed: 11:27:54 PTAGE: 57 years EKG: Sinus rhythm Non-diagnostic Q waves inferiorly BORDERLINE ECG PREVIOUS TRACING : 03/08/2018 17.43 Since the previous tracing, no significant change noted DOCTOR: Burke Gaming Interpretating Date/Time 03/22/2018 23:45:41
== END 2018-03-22 14:14 | disposition home or self-care (01) ==
LOC: PHED 10:11
DX: R42 Dizziness and giddiness (principal); R94.31 Abnormal electrocardiogram [ECG] [EKG]; D72.829 Elevated white blood cell count, unspecified; I10 Essential (primary) hypertension; K21.9 Gastro-esophageal reflux disease without esophagitis; G89.4 Chronic pain syndrome; Z85.820 Personal history of malignant melanoma of skin; Z90.49 Acquired absence of other specified parts of digestive tract; Z87.891 Personal history of nicotine dependence
CPT/HCPCS: 70450; 71045; 74177; 80053; 81001; 84484; 85025; 85610; 85730; 93005; 96361; 96374; 99285; J2405; J7040; Q9963; Q9967